=== PATIENT | female | born 1990 | race Caucasian/White ===

== ENCOUNTER 2017-05-31 04:23 | Emergency (ER) | payer OTHER ==
[~2017-05-31] VITALS: Ht 157.5 cm; Wt 45.4 kg
--- NOTE | 2017-05-31 04:59 | ED Psychosocial ---
General Chief Complaint: Psych/Social Disorder Stated Complaint: CAN'T SLEEP FOR 4 DAYS Nursing Triage Note: PT AMBULATED TO ROOM. PT STATES SHE HASN'T BEEN ABLE TO SLEEP FOR 4 DAYS. PT COMPLAINS OF HALLUCINATIONS, SHAKING, AND DIARRHEA. PT STATES SHE HAS BEEN HOSPITALIZED FOR EXAUSTION BEFORE. PT IS ON MEDICATIONS FOR INSOMNIA. Source: patient Exam Limitations: no limitations History of Present Illness Time seen by provider: 04:49 Initial Comments Patient presents to ER with chief complaint of not able to sleep for the past 4 days. She has a history of anxiety for which she uses Zoloft and clonazepam. She also has a history of insomnia for most of her life. She says in 2007 she was hospitalized for exhaustion for a couple days. Her doctor she's had her entire life is in [place] where she was raised. She is here working in town for another month and she is returning at the end of the month. She has an appointment to see her doctor on the of this month. She has not seen a psychiatrist for her insomnia for many years. She also uses metoprolol for her blood pressure as well as Adderall since she was 4 years old. Patient states that at night she turns all the lights off in her room and temperature phone across the room on the big data lead. She turns off all the noise and then her mind just races for hours on end. Sometimes she gets sleep using a couple glasses of alcohol for about an hour or 2 but then she wakes up and cannot get back to sleep. She is concerned about using alcohol as she has alcoholic's and her family. In the past she has used zolpidem with good effect and Lunesta and melatonin with no effect. She has no other significant medical history and only has allergies to sulfa. She denies any desire to harm herself or suicidality. What concerned her enough to bring her into the ER nannette was that she was talking to her on the phone and told him that she was about to lose connection as she was going to the [place] and her had to remind her that she was at home sitting in a chair not driving back to [facility]. Constitutional: No chills, No diaphoresis, No fever, No malaise Respiratory: No cough, No short of breath Cardiovascular: No chest pain, No palpitations Gastrointestinal: No abdominal pain, No constipation, No diarrhea, No nausea Genitourinary: No discharge, No dysuria Musculoskeletal: No back pain, No joint pain Skin: No pruritus, No rash Psychiatric/Neurological: See HPI, Anxiety, Denies Headache, Denies Numbness, Denies Paresthesia Past [id number] Hx Patient Social History Alcohol Use: Regular Use Recreational Drug Use: No Smoking Status: Never a Smoker Recent Foreign Travel: No Contact w/Someone Who Travel: No Recent Infectious Disease Expo: No Physical Exam Vital Signs Vital Sign - Last 12Hours 05/31/17 04:36 Temp 97.1 Pulse 80 Resp 20 B/P (MAP) 101/65 Pulse Ox 99 O2 Delivery Room Air Capillary Refill : Less Than 3 Seconds General Appearance: WD/WN, no apparent distress, thin HEENT: PERRL/EOMI, pharynx normal Neck: non-tender, normal inspection Respiratory: lungs clear, normal breath sounds Cardiovascular: normal peripheral pulses, regular rate, rhythm Extremities: normal inspection, normal capillary refill Neurologic/Psychiatric: alert, normal mood/affect, oriented x 3 Appearance/Memory: appropriate appearance, appropriate insight, neat, no memory impairment Behavior/Eye Contact: cooperative, good eye contact, normal speech Thoughts/Hallucinations: normal thought pattern, no apparent hallucination Skin: normal color, warm/dry Progress/Results/Core Measures Results/Orders Vital Signs/I&O Vital Sign - Last 12Hours 05/31/17 04:36 Temp 97.1 Pulse 80 Resp 20 B/P (MAP) 101/65 Pulse Ox 99 O2 Delivery Room Air Blood Pressure Mean: 77 Departure Impression Impression: Primary Impression: Insomnia Qualified Codes: F51.01 - Primary insomnia Disposition: 01 HOME, SELF-CARE Condition: Stable Departure-Patient Inst. Decision time for Depature: 05:03 Referrals: NO,LOCAL PHYSICIAN (PCP/Family) Primary Care Physician Patient Instructions: Insomnia (DC) Add. Discharge Instructions: Review the handout on sleep hygiene as well as some cognitive behavioral therapies such as mindful breathing. I would recommend discontinuation of use of alcohol around bedtime as it can have a post excitatory phase. I would recommend you discuss with your primary care physician the mixed use of stimulants and benzodiazepines and how these might affect your sleep patterns. I recommend using the Vistaril 1 tablet twice a day as necessary for sleep. If this does not work I will also send you a prescription for temazepam, Restoril to be used one tablet at night before bed as needed. A fan or other white noise as often helpful getting and staying asleep. Do not drink caffeine, exercise or eat for several hours prior to going to bed. All discharge instructions reviewed with patient and/or family. Voiced understanding. Scripts Hydroxyzine Pamoate (Vistaril) 25 Mg Capsule 25 MG PO BID Y for INSOMNIA, #20 CAP 0 Refills Prov: MAGNO HIGH 05/31/17 Temazepam (Temazepam) 15 Mg Capsule 15 MG PO HS Y for INSOMNIA, #20 CAP 0 Refills Prov: MAGNO HIGH 05/31/17 MAGNO HIGH May 31, 2017 04:59
[2017-05-31] MEDS ORDERED: HYDR25CA PO (05:08)
[2017-05-31] MEDS ORDERED: TEMA15CA PO (05:08)
[2017-05-31 05:14] VITALS: BP 101/65
== END 2017-05-31 05:14 | disposition home or self-care (01) ==
LOC: ER 04:30
DX: G47.00 Insomnia, unspecified (principal); F41.9 Anxiety disorder, unspecified
CPT/HCPCS: 99283

== ENCOUNTER 2017-06-09 11:31 | Emergency (ER) | payer OTHER ==
[~2017-06-09] VITALS: Ht 157.5 cm; Wt 45.4 kg
[~2017-06-09 11:31] MED LIST: HYDR25CA PO; TEMA15CA PO
[2017-06-09] MEDS ORDERED: SERT25TA5 (11:59)
[2017-06-09] MEDS ORDERED: SERT50TA9 (11:59)
[2017-06-09] MEDS ORDERED: DEXT30TA12 (11:59)
[2017-06-09] MEDS ORDERED: CLON1TAB3 (11:59)
[2017-06-09 12:01] VITALS: BP 134/93
[2017-06-09] MEDS ORDERED: PHENobarbital 64.8 MG (1 GRAIN) TAb PO ONE (12:30)
[2017-06-09 12:44] LABS: BASOPHILS % (AUTO) 1 % (0-10); EOSINOPHILS # (AUTO) 0.1 10^3/uL (0.0-0.3); EOSINOPHILS % (AUTO) 2 % (0-10); LYMPHOCYTES # (AUTO) 1.7 X 10^3 (1.0-4.0); LYMPHOCYTES % (AUTO) 38 % (12-44); MEAN CORPUSCULAR HEMOGLOBIN 31 PG (25-34); MEAN CORPUSCULAR HGB CONC 34 G/DL (32-36); MEAN CORPUSCULAR VOLUME 91 FL (80-99); MONOCYTES # (AUTO) 0.4 X 10^3 (0.0-1.0); MONOCYTES % (AUTO) 9 % (0-12); NEUTROPHILS # (AUTO) 2.1 X 10^3 (1.8-7.8); NEUTROPHILS % (AUTO) 50 % (42-75); PLATELET COUNT 291 10^3/uL (130-400); RED BLOOD COUNT 4.08 10^6/uL (4.35-5.85); RED CELL DISTRIBUTION WIDTH 11.9 % (10.0-14.5); WHITE BLOOD COUNT 4.3 10^3/uL (4.3-11.0)
[2017-06-09 12:50] LABS: BILIRUBIN,URINE NEGATIVE (NEGATIVE); KETONES,URINE NEGATIVE (NEGATIVE); LEUKOCYTE ESTERASE ,URINE NEGATIVE (NEGATIVE); NITRITE,URINE NEGATIVE (NEGATIVE); PH,URINE 6.5 (5-9); PROTEIN,URINE NEGATIVE (NEGATIVE); UROBILINOGEN,URINE 1 MG/DL (NORMAL)
[2017-06-09 13:09] LABS: ALANINE AMINOTRANSFERASE 31 U/L (0-55); ALBUMIN 4.3 GM/DL (3.2-4.5); ALCOHOL < 10 MG/DL (<10); ANION GAP 7 MMOL/L (5-14); ASPARTATE AMINO TRANSFERASE 23 U/L (5-34); BILIRUBIN,TOTAL 0.9 MG/DL (0.1-1.0); BLOOD UREA NITROGEN 18 MG/DL (7-18); BUN/CREATININE RATIO 16; CARBON DIOXIDE 28 MMOL/L (21-32); CHLORIDE 106 MMOL/L (98-107); CREATININE SERUM 1.11 MG/DL (0.60-1.30); GFR ESTIMATED 59; GLUCOSE 104 MG/DL (70-105); SALICYLATE < 5.0 MG/DL (5.0-20.0); SODIUM 141 MMOL/L (135-145); TOTAL PROTEIN 7.2 GM/DL (6.4-8.2)
[2017-06-09 13:26] LABS: ACETAMINOPHEN < 10 UG/ML (10-30)
[2017-06-09 13:29] LABS: THYROID STIMULATING HORMONE 0.83 UIU/ML (0.35-4.94)
--- NOTE | 2017-06-09 13:45 | ED Psychosocial ---
General Chief Complaint: Psych/Social Disorder Stated Complaint: CHRONIC INSOMNIA Nursing Triage Note: Unable to sleep times 2 wks. Previous issues. Denies suicide or self harm at this time but is concerned that it could come a possibilty History of Present Illness Time seen by provider: 13:42 Initial Comments This 26-year-old white female returns to the emergency department with continued insomnia. The patient has severed from years of similar complaints for which she has been tried on a plethora of medications. She is currently using clonazepam and Adderall. The patient is also severed from anxiety and depression. Patient states that she lastly slept effectively more than 2 weeks ago. The patient was concerned that she may become suicidal as she has been unable to sleep for such a protracted period. Allergies and Home Medications Allergies Coded Allergies: Sulfa (Sulfonamide Antibiotics) (Verified Allergy, Unknown, 06/09/17) Home Medications Clonazepam 1 Mg Tablet, (Reported) Dextroamphetamine/Amphetamine 30 Mg Tablet, (Reported) Hydroxyzine Pamoate 25 Mg Capsule, 25 MG PO BID PRN for INSOMNIA, #20 Ref 0 Prescribed by: MAGNO HIGH on 05/31/17 0508 Sertraline HCl 25 Mg Tablet, (Reported) Sertraline HCl 50 Mg Tablet, (Reported) Temazepam 15 Mg Capsule, 15 MG PO HS PRN for INSOMNIA, #20 Ref 0 Prescribed by: MAGNO HIGH on 05/31/17 0508 Constitutional: No chills, No fever EENTM: No blurred vision, No throat pain Respiratory: No cough Cardiovascular: No chest pain Gastrointestinal: No abdominal pain, No diarrhea, No vomiting Genitourinary: No decreased output, No dysuria Musculoskeletal: No back pain, No muscle pain Skin: No rash Psychiatric/Neurological: See HPI, Anxiety, Depressed, Other (sleep disorder) Past Tkkqzae-Litpzi-[id number] Hx Patient Social History Alcohol Use: Occasionally Uses Recreational Drug Use: No Smoking Status: Never a Smoker 2nd Hand Smoke Exposure: No Recent Foreign Travel: No Contact w/Someone Who Travel: No Recent Infectious Disease Expo: No Recent Hopitalizations: No Physical Abuse: No Sexual Abuse: No Mistreated: No Fear: No Immunizations Up To Date Tetanus Booster (TDap): Unknown Seasonal Allergies Seasonal Allergies: No Surgeries History of Surgeries: Yes Surgeries: Orthopedic, Tonsillectomy Respiratory History of Respiratory Disorde: No Cardiovascular History of Cardiac Disorders: Yes Cardiac Disorders: Hypertension Neurological History of Neurological Disord: No Genitourinary History of Genitourinary Disor: No Gastrointestinal History of Gastrointestinal Di: No Musculoskeletal History of Musculoskeletal Dis: No Endocrine History of Endocrine Disorders: No HEENT History of HEENT Disorders: No Cancer History of Cancer: No Psychosocial History of Psychiatric Problem: Yes Behavioral Health Disorders: ADD/ADHD, Anxiety, Depression Suicide Risk Score: 0 Integumentary History of Skin or Integumenta: No Blood Transfusions History of Blood Disorders: No Reviewed Nursing Assessment Reviewed/Agree w Nursing PMH: Yes Physical Exam Vital Signs Vital Sign - Last 12Hours 06/09/17 12:01 Pulse 93 Resp 18 B/P (MAP) 134/93 Pulse Ox 100 Capillary Refill : Less Than 3 Seconds General Appearance: WD/WN, mild distress HEENT: normal ENT inspection Neck: normal inspection Respiratory: lungs clear Cardiovascular: regular rate, rhythm Gastrointestinal: normal bowel sounds, non tender, soft Extremities: normal range of motion, non-tender, normal inspection Neurologic/Psychiatric: no motor/sensory deficits, alert, depressed affect Appearance/Memory: appropriate appearance, appropriate insight, neat, no memory impairment Behavior/Eye Contact: cooperative, good eye contact, normal speech Thoughts/Hallucinations: normal thought pattern, no apparent hallucination Skin: normal color, warm/dry Progress/Results/Core Measures Results/Orders Lab Results Laboratory Tests Test 06/09/17 12:24 06/09/17 12:35 Range/Units Urine Color YELLOW Urine Clarity CLEAR Urine pH 6.5 5-9 Urine Specific Williams 1.015 L 1.016-1.022 Urine Protein NEGATIVE NEGATIVE Urine Glucose (UA) NEGATIVE NEGATIVE Urine Ketones NEGATIVE NEGATIVE Urine Nitrite NEGATIVE NEGATIVE Urine Bilirubin NEGATIVE NEGATIVE Urine Urobilinogen 1 NORMAL MG/DL Urine Leukocyte Esterase NEGATIVE NEGATIVE Urine RBC (Auto) NEGATIVE NEGATIVE Urine RBC NONE /HPF Urine WBC NONE /HPF Urine Squamous Epithelial Cells 2-5 /HPF Urine Crystals NONE /LPF Urine Bacteria TRACE /HPF Urine Casts NONE /LPF Urine Mucus NEGATIVE /LPF Urine Culture Indicated NO Urine Opiates Screen NEGATIVE NEGATIVE Urine Oxycodone Screen NEGATIVE NEGATIVE Urine Methadone Screen NEGATIVE NEGATIVE Urine Propoxyphene Screen NEGATIVE NEGATIVE Urine Barbiturates Screen NEGATIVE NEGATIVE Ur Tricyclic Antidepressants Screen NEGATIVE NEGATIVE Urine Phencyclidine Screen NEGATIVE NEGATIVE Urine Amphetamines Screen POSITIVE H NEGATIVE Urine Methamphetamines Screen NEGATIVE NEGATIVE Urine Benzodiazepines Screen POSITIVE H NEGATIVE Urine Cocaine Screen NEGATIVE NEGATIVE Urine Cannabinoids Screen NEGATIVE NEGATIVE White Blood Count 4.3 4.3-11.0 10^3/uL Red Blood Count 4.08 L 4.35-5.85 10^6/uL Hemoglobin 12.8 11.5-16.0 G/DL Hematocrit 37 35-52 % Mean Corpuscular Volume 91 80-99 FL Mean Corpuscular Hemoglobin 31 25-34 PG Mean Corpuscular Hemoglobin Concent 34 32-36 G/DL Red Cell Distribution Width 11.9 10.0-14.5 % Platelet Count 291 130-400 10^3/uL Mean Platelet Volume 10.0 7.4-10.4 FL Neutrophils (%) (Auto) 50 42-75 % Lymphocytes (%) (Auto) 38 12-44 % Monocytes (%) (Auto) 9 0-12 % Eosinophils (%) (Auto) 2 0-10 % Basophils (%) (Auto) 1 0-10 % Neutrophils # (Auto) 2.1 1.8-7.8 X 10^3 Lymphocytes # (Auto) 1.7 1.0-4.0 X 10^3 Monocytes # (Auto) 0.4 0.0-1.0 X 10^3 Eosinophils # (Auto) 0.1 0.0-0.3 10^3/uL Basophils # (Auto) 0.0 0.0-0.1 10^3/uL Sodium Level 141 135-145 MMOL/L Potassium Level 4.0 3.6-5.0 MMOL/L Chloride Level 106 98-107 MMOL/L Carbon Dioxide Level 28 21-32 MMOL/L Anion Gap 7 5-14 MMOL/L Blood Urea Nitrogen 18 7-18 MG/DL Creatinine 1.11 0.60-1.30 MG/DL Estimat Glomerular Filtration Rate 59 BUN/Creatinine Ratio 16 Glucose Level 104 70-105 MG/DL Calcium Level 9.0 8.5-10.1 MG/DL Total Bilirubin 0.9 0.1-1.0 MG/DL Aspartate Amino Transf (AST/SGOT) 23 5-34 U/L Alanine Aminotransferase (ALT/SGPT) 31 0-55 U/L Alkaline Phosphatase 72 40-136 U/L Total Protein 7.2 6.4-8.2 GM/DL Albumin 4.3 3.2-4.5 GM/DL Thyroid Stimulating Hormone (TSH) 0.83 0.35-4.94 UIU/ML Salicylates Level < 5.0 L 5.0-20.0 MG/DL Acetaminophen Level < 10 L 10-30 UG/ML Serum Alcohol < 10 <10 MG/DL My Orders Orders - CHADD LOVE MD Ua Culture If Indicated (06/09/17 12:19) Cbc With Automated Diff (06/09/17 12:19) Comprehensive Metabolic Panel (06/09/17 12:19) Alcohol (06/09/17 12:19) Drug Screen Stat (Urine) (06/09/17 12:19) Acetaminophen (06/09/17 12:19) Salicylate (06/09/17 12:19) Ekg Tracing (06/09/17 12:19) Saline Lock/Iv-Start (06/09/17 12:19) Monitor-Rhythm Ecg Trace Only (06/09/17 12:19) Phenobarbital Tablet (Phenobarbital Tabl (06/09/17 12:30) Thyroid Stimulating Hormone (06/09/17 12:25) Medications Given in ED Current Medications Medications Dose Ordered Sig/[place] Start Time Stop Time Status Last Admin Dose Admin Phenobarbital 64.8 mg ONCE ONCE PO 06/09/17 12:30 06/09/17 12:31 DC 06/09/17 12:54 64.8 MG Vital Signs/I&O Vital Sign - Last 12Hours 06/09/17 12:01 Pulse 93 Resp 18 B/P (MAP) 134/93 Pulse Ox 100 Blood Pressure Mean: 107 Progress Note : Time: 13:48 Progress Note The patient's evaluation in the emergency department demonstrated amphetamines and benzodiazepines on the patient's urine drug screen appropriate for her current medications. After prolonged conversation with the patient and her family plans were made for the patient to receive in-house treatment in [place] near her home. The patient related that she feels significantly relieved that there is a plan in place to help her overcome her sleep deficit. She no longer is concerned that she will become suicidal. Treatment plan as the patient's father will come to [place] and take the patient home to [place] for in-hospital treatment in [place]. Patient was given 65 mg of phenobarbital in the emergency department without causing the patient's any adverse symptoms. The patient however was not able to fall sleep with this medicine. Departure Impression Impression: Primary Impression: Sleep disorder Disposition: 01 HOME, SELF-CARE Condition: Unchanged Departure-Patient Inst. Decision time for Depature: 13:52 Referrals: NO,LOCAL PHYSICIAN (PCP) Primary Care Physician Add. Discharge Instructions: Follow-up with an hospital care in [place] for your sleep disorder. Return if any problems or questions. All discharge instructions reviewed with patient and/or family. Voiced understanding. CHADD LOVE MD Jun 09, 2017 13:45
[2017-06-09] MEDS ORDERED: ZOLPIDEM 5 MG (AMBIEN) TAB PO ONE ×2 (16:00)
== END 2017-06-09 17:37 | disposition home or self-care (01) ==
LOC: EDUNIT# 11:31 → ER 11:35
DX: G47.00 Insomnia, unspecified (principal); I10 Essential (primary) hypertension; F41.9 Anxiety disorder, unspecified; F33.9 Major depressive disorder, recurrent, unspecified; Z79.899 Other long term (current) drug therapy
CPT/HCPCS: 36415; 80053; 80306; 80320; 80329; 81000; 84443; 85025